=== PATIENT | male | born 1960 | race Caucasian/White ===

== ENCOUNTER 2024-10-08 05:18 | Day surgery (SDC) | payer OTHER | END 2024-10-08 13:00 | disposition home or self-care (01) | LOC: AMB-ENDOS 05:18 | PROVIDERS: ATTEND Internal Medicine | DX: D12.2 Benign neoplasm of ascending colon (principal); K63.5 Polyp of colon; K57.30 Diverticulosis of large intestine without perforation or abscess without bleeding; Z86.0101 Personal history of adenomatous and serrated colon polyps ==

== ENCOUNTER → 2024-11-29 | Emergency (ER) | payer OTHER ==
[~2024-11-29] MED LIST: COZAAR25 MG; HUMALOG100 UNIT/1; LANTUS SOL100 UNIT/1
== END | disposition home or self-care (01) ==
LOC: ER 13:45
DX: Z53.21 Procedure and treatment not carried out due to patient leaving prior to being seen by health care provider (principal)